=== PATIENT | female | born 1960 | race Caucasian/White ===

== ENCOUNTER 2018-07-27 06:56 | Inpatient (IN) | payer OTHER ==
[2018-07-24 14:17] LABS: BASOPHILS % 0.3 % (0.0-1.0); EOSINOPHILS # (AUTO) 0.2 (0.0-0.4); EOSINOPHILS % 1.2 % (0.0-6.0); HEMOGLOBIN 14.8 g/dL (12.0-16.0); LYMPHOCYTES # (AUTO) 2.7 (1.0-3.2); MEAN CORPUSCULAR HEMOGLOBIN 28.2 pg (28-32); MEAN CORPUSCULAR HGB CONC 32.9 g/dL (31-35); MEAN CORPUSCULAR VOLUME 85.7 fL (81-99); MONOCYTES % 7.4 % (4.4-11.3); NEUTROPHILS % 69.7 % (38.7-80.0); PLATELET COUNT 287 x10e3/uL (140-360); RED BLOOD COUNT 5.25 x10e6/uL (3.6-5.1); RED CELL DISTRIBUTION WIDTH 13.6 % (11.7-14.4)
[2018-07-24 14:58] LABS: ANION GAP 14.3 mmol/L (8-16); BLOOD UREA NITROGEN 16 mg/dL (7-26); BUN/CREATININE RATIO 22 (6-25); CARBON DIOXIDE 26 mmol/L (22-29); CHLORIDE 99 mmol/L (98-107); CREATININE, SERUM 0.73 mg/dL (0.57-1.11); EST GLOMERULAR FILTRATION RATE > 60 ML/MIN (60-); GLUCOSE 94 mg/dL (74-118); POTASSIUM 4.3 mmol/L (3.5-5.1); SODIUM 135 mmol/L (136-145)
[~2018-07-27] VITALS: Ht 175.3 cm; Wt 143.8 kg
[~2018-07-27 06:56] MED LIST: HYDROCHLOROTH12.5 M1; LISINOPRIL; METFORMIN HCL500 MG PO; ONCE DAILY1 EACH; PROBIOTIC & AC1 EACH; SIMVASTATIN20 MG PO; STOOL SOFTENER1 EAC2; TRULICITY SQ
--- OUTSIDE RECORDS SUMMARY | 2018-07-27 06:58 | XMS REPORT | Continuity of Care Document ---
Author Author [facility] Interface Address Unknown Phone Unavailable Problems Problem Status Onset Date Classification Date Reported Comments Source Z12.31 - ENCNTR SCREEN MAMMOGRAM FOR MA Active 04/21/2018 JUAN Olivares Medications Medication Details Route Status Patient Instructions Ordering Provider Order Date Source Allergies, Adverse Reactions, Alerts Substance Category Reaction Severity Reaction type Status Date Reported Comments Source Immunizations Immunization Date Given Site Status Last Updated Comments Source Results Order Name Results Value Reference Range Date Interpretation Comments Source Breast Mammo Scrn MARY CARMEN incl CAD MA Breast Mammo Scrn MARY CARMEN incl CAD MA BILATERAL DIGITAL SCREENING MAMMOGRAM WITH CAD: 05/06/2018 CLINICAL: Routine/Screening. Current study was evaluated with a Computer Aided Detection (CAD) system. COMPARISON:Comparison is made to exams dated: 06/10/2007 mammogram, 07/04/2008 mammogram, and 08/22/2009 mammogram. TECHNIQUE: Mammographic views were obtained using digital acquisition. Current study was also evaluated with a Computer Aided Detection (CAD) system. FINDINGS: The tissue of both breasts is almost entirely fat. No significant masses, calcifications, or other findings are seen in either breast. There has been no significant interval change. IMPRESSION: NEGATIVE RECOMMENDATION:There is no mammographic evidence of malignancy. A 1 year screening mammogram is recommended.(05/07/2019) This exam was interpreted at [id number] at [facility] Location. Professional services are provided by the [facility] of Diagnostic Imaging. Luiza duval/penrad:05/07/2018 07:27:07 Service Order Taker(s): RT [facility]Santo[facility] BI-RADS 1/2 Mammogram BI-RADS: 1 Negative 05/06/2018 - - Read by: Luiza Gregory MD Dictated Date/time: 05/07/18 07:27 Electronically Signed by: Luiza Gregory MD 05/07/18 07:27 FINAL REPORT MH VERONIKA Olivares Vital Signs Vital Sign Value Date Comments Source Encounters Location Location Details Encounter Type Encounter Number Reason For Visit Attending Provider ADM Date DC Date Status Source Procedures Procedure Code Date Perfomer Comments Source
--- OUTSIDE RECORDS SUMMARY | 2018-07-27 06:58 | XMS REPORT ---
Author Author [facility] Address Unknown Phone Unavailable Care Team Providers Care Global Process Owner Name Role Phone Unavailable Unavailable Payers Payer Name Policy Type Policy Number Effective Date Expiration Date Problems This patient has no known problems. Allergies, Adverse Reactions, Alerts Allergy Name Allergy Type Status Severity Reaction(s) Onset Date Inactive Date Treating Clinician Comments COMPAZINE DA Active U 2006-07-20 00:00:00 No Known Contrast Allergies DA Active U 2006-07-20 00:00:00 No Known Food Allergies DA Active U 2006-07-20 00:00:00 No Known Other Allergies DA Active U 2006-07-20 00:00:00 Medications This patient has no known medications.
[2018-07-27] MEDS ORDERED: CEFAZOLIN SOD 2 GM/D5W 50ML 50 ML IV ONE (07:42)
[2018-07-27] MEDS ORDERED: BUPIVACAINE 0.25% 30ML SDV INJ ONE (08:13)
[2018-07-27] MEDS ORDERED: ONDANSETRON HCL INJ 2 MG/ML VIAL IV PRN (09:00)
[2018-07-27] MEDS ORDERED: MORPHINE SULFATE 2 MG/ML SYR IV PRN (09:00)
[2018-07-27] MEDS ORDERED: SCOPOLAMINE 1.5 MG PATCH TOP SCH (09:00)
[2018-07-27] MEDS ORDERED: ACETAMINOPHEN 1000 MG/100 ML 100 ML IV ONE (09:07)
[2018-07-27] MEDS ORDERED: SCOPOLAMINE 1.5 MG PATCH ONE (09:07)
[2018-07-27] MEDS ORDERED: LIDOCAINE HCL (LTA) 4 ML SOLN ONE (09:07)
[2018-07-27] MEDS ORDERED: FAMOTIDINE 20 MG/2 ML VIAL IV ONE (09:08)
[2018-07-27] MEDS ORDERED: SUGAMMADEX SODIUM 200 MG/2 ML VIAL IV ONE (09:08)
[2018-07-27] MEDS ORDERED: FENTANYL CITRATE/PF 100MCG/2 ML INJ ONE ×2 (11:01→18:37)
[2018-07-27] MEDS ORDERED: MORPHINE SULFATE INJ 4 MG/ML INJ ONE (11:31)
[2018-07-27] MEDS ORDERED: HYDROMORPHONE 2MG/ML 2 MG/ML ML ONE (11:55)
--- NOTE | 2018-07-27 12:30 | NUR ---
PT TO THE FLOOR FROM PACU. VITALS WNL. PT'S FAMILY AT BEDSIDE. PT DENIES NEEDS AT THIS TIME.
[2018-07-27 12:33] VITALS: BP 156/68
[2018-07-27] MEDS: SODIUM CHLORIDE 0.9% 1000ML 1,000 ML IV SCH ×2 (12:38→17:49)
[2018-07-27 13:00] VITALS: BP 156/68
--- NOTE | 2018-07-27 13:00 | NUR ---
PT UP WITH ASSIST TO THE BATHROOM. PT TOLERATED AND IS SITTING IN ALEX CHAIR AT BEDSIDE.
--- NOTE | 2018-07-27 13:42 | Operative Report ---
DATE OF PROCEDURE: July 27, 2018 PREOPERATIVE DIAGNOSES 1. Morbid obesity, body mass index 50. 2. Type 2 diabetes mellitus. 3. Hypertension. 4. Gastroesophageal reflux disease. POSTOPERATIVE DIAGNOSES 1. Morbid obesity, body mass index 50. 2. Type 2 diabetes mellitus. 3. Hypertension. 4. Gastroesophageal reflux disease. PREOPERATIVE INDICATIONS: Treat disease to prevent complications related to comorbid conditions of obesity. PROCEDURE: Laparoscopic vertical sleeve gastrectomy. ANESTHESIA: General. FRONT TENDER: Elmer Blue surgical waiter/waitress first class (needed due to complexity of case). FLUIDS: 1500 mL crystalloid. EBL: 30 mL. DRAINS: None. COMPLICATIONS: None. SPECIMENS: Partial stomach. GRAFTS: None. FINDINGS 1. Normal upper GI anatomy. 2. Negative intraoperative EGD leak test. PROCEDURE DETAILS: The patient was brought to the operating room and was intubated under general endotracheal anesthesia. She was positioned supine with both arms abducted, and all pressure points appropriately padded. She was sterilely prepped and draped in the usual fashion. A preprocedure pause was performed identifying the patient, the use of perioperative antibiotics, intended procedure, and staff surgeon. A primary 5 mm left subcostal incision was made and a Veress needle was inserted to insufflate the patient to a pressure of 15 mmHg of pressure. A 0-degree, 5 mm Optiview trocar was placed under direct visualization. No injuries were noted. Four additional trocars were placed in the standard position. The patient was then placed in a steep reverse Trendelenburg position. A liver retractor was used to expose the hiatus and the proximal stomach. I then mobilized the greater curvature of the stomach using the [place] LigaSure device. This was done from about 4 cm proximal to the pyloric valve to the left crux of the diaphragm. Once this was complete, I then inserted an adult size endoscope along the lesser curvature of the stomach to be used as a bougie. The greater curvature of the stomach was then stapled off with multiple firings of an endo-SUHAIL 60 mm Covidien stapling device, which was reinforced with Seamguard. Once this was complete, we submerged the sleeve under saline to conduct intraoperative EGD leak test. No leaks were identified. The specimen was removed through the right periumbilical port site and the port site was closed with 0 Vicryl suture using the Braydon-April technique in a figure-of-8 fashion. Hemostasis was verified. The liver retractor was removed. The abdomen was desufflated. The trocars were removed. We then closed the incision sites with 4-0 Monocryl suture in a subcuticular fashion. Dermabond dressing was applied. Thirty mL of 0.25% bupivacaine were used at both preperitoneal incision sites. The patient tolerated the procedure well. Type of wound is type 2, clean and contaminated. All surgical sponges and instrument counts were correct. Job#: [id number] KATIE MI
--- NOTE | 2018-07-27 15:45 | NUR ---
PT UP AMBULATING WITH ASSIST TO THE BATHROOM.
[2018-07-27 16:05] VITALS: BP 153/70
[2018-07-27] MEDS ORDERED: DEXAMETHASONE SOD PHOS INJ 4 MG/ML VIAL ONE (18:22)
[2018-07-27] MEDS ORDERED: LIDOCAINE HCL 2% LOCAL INJ 5 ML SDV VIAL INJ ONE (18:22)
[2018-07-27] MEDS ORDERED: ONDANSETRON HCL INJ 2 MG/ML VIAL ONE (18:22)
[2018-07-27] MEDS ORDERED: ROCURONIUM BROMIDE 10 MG/ML 5ML VIAL ONE (18:22)
[2018-07-27] MEDS ORDERED: PROPOFOL IV EMULSION 10 MG/ML 20 ML VIAL ONE (18:22)
[2018-07-27] MEDS ORDERED: SEVOFLURANE INHAL SOLN 250 ML PEN BTL ONE (18:22)
[2018-07-27] MEDS ORDERED: MIDAZOLAM HCL 2 MG/2 ML VIAL ONE (18:37)
[2018-07-27] MEDS: MORPHINE SULFATE INJ 4 MG/ML INJ IV PRN (18:43)
[2018-07-27] MEDS ORDERED: MORPHINE SULFATE INJ 4 MG/ML INJ IV PRN (18:45)
--- NOTE | 2018-07-27 19:20 | NUR ---
REPORT TAKEN FROM MORNING RN.WALKING ROUNDS DONE.SITTING ON THE CHAIR.PT ISAAOX4.BLOOD SUGAR MONITORED.NO RESP.DISTRESS.PAIN VOICED 11/27.IV NS RUNNING @ 75 ML/HR.5 TROCAR SITES NOTED ON ABDOMEN.DRY AND INTACT.USING ICS.ENCOURAGED TO DO DEEP BREATHING EXERCISE.BED LOCKED AND IN LOWEST POSITION.PHONE AND CALL LIGHT WITHIN REACH.INSTRUCTED TO CALL FOR ASSISTANCE NEEDED.
[2018-07-27 20:00] VITALS: BP 138/66
[2018-07-27 20:10] VITALS: BP 138/66
--- NOTE | 2018-07-27 20:14 | History and Physical ---
DATE OF SERVICE: July 27, 2018 CHIEF COMPLAINT: "I just had bariatric surgery." HISTORY OF PRESENT ILLNESS: This is a 58-year-old white woman who underwent successful laparoscopic sleeve gastrectomy today. Patient has extreme obesity, calculated body mass 46 that complicates her underlying type 2 diabetes mellitus and hypertension. Patient voices no complaints today other than mild abdominal pain. Patient denies any nausea or vomiting. Patient states she is belching. Patient denies any flatus or bowel movement though. Blood work done on July 24, 2018 revealed a white blood cell count of 12,800 with 69% segmented neutrophils. Hemoglobin is 14.8 g/dL. On July 24, 2018, BUN and creatinine were 16 and 0.73 respectively. REVIEW OF SYSTEMS: GENERAL: Weight is stable. No fever or chills. HEENT: No headaches, no visual changes. CARDIOVASCULAR/RESPIRATORY: No chest pain. No shortness of breath or cough. GI: No nausea, vomiting, diarrhea, or constipation. Patient is yet to have a bowel movement or have any flatus since surgery today. : No Benítez catheter in place. States she is voiding without any difficulty. NEUROMUSCULAR: Denies any limb weakness or numbness. She does complain of more swelling in her bilateral feet since surgery this morning. ALLERGIES: COMPAZINE. PAST MEDICAL HISTORY: 1. Extreme obesity, calculated body mass index 46. 2. Hypertensive heart disease. 3. Type 2 diabetes mellitus. 4. Hyperlipidemia. FAMILY HISTORY: Mother of heart disease. She had uncle and maternal grandmother with type 2 diabetes mellitus. Father of brain cancer. MEDICATIONS: 1. Hydrochlorothiazide 12.5 mg once daily. 2. Probiotic/acidophilus 1 daily. 3. Metformin 500 mg b.i.d. 4. Multivitamins daily. 5. Docusate with Senna 1 daily. 6. Simvastatin 20 mg nightly. 7. Lisinopril 20 mg daily. 8. Trulicity 0.75 mg subcutaneous weekly. SURGICAL HISTORY: 1. section twice. 2. Sinus surgery. 3. Tonsillectomy as a child. 4. Left ankle tendon transfer. SOCIAL HISTORY: This woman is . Lives with her . 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 No history of tobacco use. Drinks alcohol rarely usually once a month. PHYSICAL EXAMINATION: GENERAL: She is awake, alert, and fully oriented. She is very pleasant and cooperative with exam. She does not appear to be in any distress. VITAL SIGNS: Height is 5 feet 9 inches. Weight is 317 pounds. BMI is 46. Blood pressure 150/70, pulse 72, respiratory rate is 18, oxygen saturation 98% on room air, temperature 96.1. INTEGUMENT: Skin is warm and dry. No pallor, jaundice, or diaphoresis. HEENT: Anicteric sclerae with moist mucous membranes. NECK: Supple. CARDIOVASCULAR: Regular rate and rhythm with a faint systolic ejection murmur. LUNGS: No rales, no rhonchi, no wheezes. ABDOMEN: Obese and benign. Patient has faint bowel sounds. No tenderness appreciated. The laparoscopic incisions are clean, dry, and intact. EXTREMITIES: Patient has trace edema in the bilateral ankles/pedal area, which she states is new. NEUROLOGICAL: Intact. No gross focal deficits appreciated. DIAGNOSES: 1. Status post laparoscopic sleeve gastrectomy. 2. Hypertensive heart disease. 3. Type 2 diabetes mellitus. 4. Extreme obesity, calculated body mass index 46 complicating underlying hypertensive heart disease and type 2 diabetes mellitus. PLAN: 1. Mobilize the patient. 2. Gentle intravenous fluids. 3. Will monitor and control blood pressure. 4. Encourage incentive spirometry to prevent atelectasis. 5. Pain control. I would like to thank Dr. Wagner for involving me in the care of his patient. I spent 40 minutes in the care of the patient. Job#: [id number] DR MI
[2018-07-27] MEDS: ENOXAPARIN SOD INJ 40 MG/0.4 ML SYR SC SCH (21:30)
--- NOTE | 2018-07-27 22:10 | NUR ---
ASSISTED THE PT TO AMBULATES IN THE [address].TOLERATING ICE CHIPS.PAIN MEDICINES GIVEN.RESTING IN THE BED.FREQUENT ROUNDING.
[2018-07-28] VITALS: BP 156/73
[2018-07-28] MEDS: MORPHINE SULFATE INJ 4 MG/ML INJ IV PRN ×2 (00:20→05:37)
[2018-07-28 04:00] VITALS: BP 147/65
--- NOTE | 2018-07-28 04:00 | NUR ---
RESTED WELL DURING NIGHT.NOT PASSING GAS.AMBULATES IN THE [address].
[2018-07-28] MEDS: SODIUM CHLORIDE 0.9% 1000ML 1,000 ML IV SCH (04:58)
--- NOTE | 2018-07-28 06:00 | NUR ---
TEMP.CHECKED AND NOTED 98.8.
[2018-07-28 06:15] LABS: BASOPHILS % 0.1 % (0.0-1.0); EOSINOPHILS % 0.1 % (0.0-6.0); HEMATOCRIT 38.9 % (34.2-44.1); LYMPHOCYTES # (AUTO) 1.7 (1.0-3.2); LYMPHOCYTES % 12.2 % (18.0-39.1); MEAN CORPUSCULAR HEMOGLOBIN 28.6 pg (28-32); MEAN CORPUSCULAR HGB CONC 33.4 g/dL (31-35); MEAN CORPUSCULAR VOLUME 85.5 fL (81-99); MONOCYTES # (AUTO) 1.2 (0.2-0.8); MONOCYTES % 8.8 % (4.4-11.3); NEUTROPHILS # (AUTO) 10.7 (2.1-6.9); NEUTROPHILS % 78.3 % (38.7-80.0); PLATELET COUNT 267 x10e3/uL (140-360); RED BLOOD COUNT 4.55 x10e6/uL (3.6-5.1); RED CELL DISTRIBUTION WIDTH 13.4 % (11.7-14.4)
[2018-07-28 06:46] LABS: ALANINE AMINOTRANSFERASE 33 IU/L (0-55); ALBUMIN 3.4 g/dL (3.5-5.0); ALBUMIN/GLOBULIN RATIO 1.1 (0.8-2.0); ALKALINE PHOSPHATASE 64 IU/L (40-150); ANION GAP 13.9 mmol/L (8-16); BLOOD UREA NITROGEN 9 mg/dL (7-26); BUN/CREATININE RATIO 13 (6-25); CALCIUM 8.8 mg/dL (8.4-10.2); CARBON DIOXIDE 23 mmol/L (22-29); CHLORIDE 103 mmol/L (98-107); CREATININE, SERUM 0.69 mg/dL (0.57-1.11); EST GLOMERULAR FILTRATION RATE > 60 ML/MIN (60-); GLUCOSE 112 mg/dL (74-118); MAGNESIUM 1.9 MG/DL (1.3-2.1); PHOSPHORUS 2.8 MG/DL (2.3-4.7); POTASSIUM 3.9 mmol/L (3.5-5.1); SODIUM 136 mmol/L (136-145)
--- NOTE | 2018-07-28 07:01 | NUR ---
REPORT GIVEN TO THE ONCOMING RN.WALKING ROUNDS DONE.STABLE CONDITION.
--- NOTE | 2018-07-28 07:30 | NUR ---
Progress Note S: No complaints this a.m. O: AF, VSS; Labs reviewed and w/ in normal limits Gen- no acute distress Abd- soft, incisions c/d/i A/P: POD 1, s/p Lap sleeve gastrectomy -Clears, ambulate, OOB to chair, IS, d/c home -F/u in 1 week with me
--- NOTE | 2018-07-28 07:34 | NUR ---
Rcvd patient in report this am. Patient is asleep in bed at this time. no s/s of distress noted
--- NOTE | 2018-07-28 08:34 | Discharge Summary ---
ADMITTING DIAGNOSES 1. Extreme obesity, body mass index 46, complicating underlying hypertensive heart disease and type-2 diabetes mellitus. 2. Hypertensive heart disease. 3. Type-2 diabetes mellitus. DISCHARGE DIAGNOSES 1. Status post laparoscopic sleeve gastrectomy. 2. Extreme obesity, calculated body mass index 46, complicating underlying hypertensive heart disease and type-2 diabetes mellitus. 3. Hypertensive heart disease. 4. Type-2 diabetes mellitus. HOSPITAL COURSE: This is a 58-year-old white woman who was admitted to [facility] with diagnosis of extreme obesity, BMI 46, complicating underlying hypertensive heart disease and type-2 diabetes mellitus. During this hospitalization, the patient underwent successful laparoscopic sleeve gastrectomy, which was performed by her bariatric surgeon, namely Dr. Iban Wagner. The patient's hospitalization was unremarkable. The patient was tolerating a liquid diet on discharge. The patient was ambulating to and from the nurse's station from her room prior to discharge. DISCHARGE MEDICATIONS 1. Hydrochlorothiazide 12.5 mg once daily. 2. Metformin 500 mg b.i.d. (the patient can start this medication 1 day after discharge, which will be July 29, 2018). 3. Multivitamins daily. 4. Simvastatin 20 mg nightly. 5. Lisinopril 20 mg daily. 6. Trulicity 0.75 mg subcutaneous weekly (patient was instructed to start this on Friday, August 02, 2018). 7. Tramadol 50 mg 1 every 6 hour p.r.n. mild pain, 25 prescribed, no refills. 8. Tylenol No. 3 one every 4 hours p.r.n. moderate pain, 20 prescribed, no refills. FOLLOWUP INSTRUCTIONS: The patient was instructed to follow up with her bariatric surgeon, namely Dr. Iban Wagner, within 1 week and her primary care physician within 2 weeks. DASH JACKSON MD Job#: [id number]
[2018-07-28 08:44] VITALS: BP 155/71
[2018-07-28] MEDS: ENOXAPARIN SOD INJ 40 MG/0.4 ML SYR SC SCH (08:52)
[2018-07-28] MEDS ORDERED: HYDROCHLOROTHIAZIDE 25 MG TAB PO SCH (09:00)
[2018-07-28] MEDS ORDERED: LISINOPRIL 20 MG TAB PO SCH (09:00)
[2018-07-28] MEDS ORDERED: LISINOPRIL 20 MG PO SCH (09:00)
[2018-07-28] MEDS ORDERED: HYDROCODONE/APAP 7.5MG-325MG 1 EA TAB PO PRN (09:00)
[2018-07-28 09:22] VITALS: BP 155/71
--- NOTE | 2018-07-28 10:14 | NUR ---
Patient is AAOx3. Patient is post op gastric sleeve. 5 trochar sites clean and dry. No drainage noted. Lung morris clear to auscultation. Bowel sounds present x4 but hypoactive. Left lower extremity edema noted. Bilateral BREONNA's and SCD's in place. Patient ambulating in [place] and tolerating clear liquids.
--- NOTE | 2018-07-28 10:23 | NUR ---
RD Recommendation for Physician: - Advance to full liquid diet as tolerated - Rec Ensure Max ( Chocolate ) BID for POD2 if stay in hospital Plan of Care: RD following, monitoring for tolerance and adequacy Nutrition reason for involvement: MD consult - bariatric diet Primary Diagnose(s): Status post laparoscopic sleeve gastrectomy on 07/27 PMH: 1. Extreme obesity, calculated body mass index 46. 2. Hypertensive heart disease. 3. Type 2 diabetes mellitus. 4. Hyperlipidemia. Ht: 69in Wt: 317lb BMI: 46.8kg/m2 IBW: 145lb RD Assessment: (07/28) Chart reviewed. Labs and meds reviewed. 58yo F, who is s/p laparoscopic sleeve gastrectomy on 07/27. Visited pt in the room. Pt was doing very well after surgery. Pt was tolerating clear liquid this AM. No nausea or vomiting reported. RD discussed progression of bariatric diet (clear liquid>full liquid>thin puree>thick puree). All questions have answered. Recommended pt to f/u as outpatient for further monitoring. Current Diet: bariatric clear liquid Malnutrition Evaluation (07/28/2017) The patient does not meet criteria for a specified degree of malnutrition at this time. Will re-evaluate at follow-up as appropriate. Diet Education Needs Assessment: Diet education indicated, pt is agreeable with plan. Nutrition Care Level: low Signed: Melanie Brink, MS, RD, LD
--- NOTE | 2018-07-28 11:57 | NUR ---
IV removed at this time. Pressure dressing applied.
[2018-07-28 12:52] VITALS: BP 145/67
--- NOTE | 2018-07-28 13:37 | NUR ---
Patient discharged from facility to home. Patient assisted out via wheelchair. Reviewed all discharge paperwork, follow up appts, and RX's given.
[2018-07-28] MEDS ORDERED: SIMVASTATIN 20 MG TAB PO SCH (21:00)
== END 2018-07-28 13:37 | disposition home or self-care (01) | DRG 621 ==
LOC: OR 06:56 → PACU V 08:54 → MED/SURG 12:20
PROVIDERS: ADMIT Internal Medicine; ATTEND Internal Medicine
PROC: 0DB64Z3 Excision of Stomach, Percutaneous Endoscopic Approach, Vertical (ICD-10-PCS; principal; 2018-07-27 09:06)
DX: E66.01 Morbid (severe) obesity due to excess calories (principal); Z68.42 Body mass index [BMI] 45.0-49.9, adult; E11.9 Type 2 diabetes mellitus without complications; I11.9 Hypertensive heart disease without heart failure; E78.5 Hyperlipidemia, unspecified; K21.9 Gastro-esophageal reflux disease without esophagitis; Z82.49 Family history of ischemic heart disease and other diseases of the circulatory system; Z83.3 Family history of diabetes mellitus; Z80.8 Family history of malignant neoplasm of other organs or systems; Z79.84 Long term (current) use of oral hypoglycemic drugs
CPT/HCPCS: 36415; 80048; 80053; 82948; 83735; 84100; 85025; 86850; 86900; 93005; J0690; J1100; J1650; J2001; J2250; J2270; J2405; J7030